=== PATIENT | male | born 1955 | race Hispanic/Latino ===

== ENCOUNTER → 2021-12-04 | Outpatient (CLI) | payer OTHER ==
[~2021-12-04] VITALS: Ht 167.6 cm; Wt 87.5 kg
[~2021-12-04] MED LIST: REGADENOSON 0.4 MG/5 ML PF SYG IVP SCH
== END | disposition home or self-care (01) ==
LOC: SHCH 07:54
PROVIDERS: ATTEND Internal Medicine Cardiovascular Disease
DX: I11.9 Hypertensive heart disease without heart failure (principal); Z95.1 Presence of aortocoronary bypass graft; Z79.01 Long term (current) use of anticoagulants
CPT/HCPCS: 78452; 93017; 96374; A9500 ×2; J2785

== ENCOUNTER 2022-01-17 06:22 | Day surgery (SDC) | payer OTHER ==
[2022-01-15 10:51] LABS: APPEARANCE,URINE Clear (CLEAR); BILIRUBIN,URINE Negative (NEGATIVE); COLOR,URINE Yellow (YELLOW); GLUCOSE, URINE (UA) Negative (NEGATIVE); KETONES,URINE Trace mg/dL (NEGATIVE); LEUKOCYTE ESTERASE ,URINE Negative (NEGATIVE); NITRATE,URINE Negative (NEGATIVE); OCCULT BLOOD,URINE Negative (NEGATIVE); PH,URINE 5.5 (5.0-8.0); PROTEIN,URINE Trace mg/dL (NEGATIVE)
[2022-01-15 11:09] LABS: BACTERIA,URINE Rare /HPF (None Seen); RBC,URINE None Seen /HPF (0-1); SQUAMOUS EPITHELIAL CELL,UR 0-2 /HPF (0-2); WBC,URINE None Seen /HPF (0-1)
[2022-01-15 11:11] LABS: INR 1.02 (0.85-1.15); PROTHROMBIN TIME 11.1 SEC (9.6-11.6)
[2022-01-15 11:13] LABS: PARTIAL THROMBOPLASTIN TIME 28.8 SEC (26.3-35.5)
[2022-01-15 11:14] LABS: CREATININE 1.1 mg/dL (0.5-1.5); POTASSIUM 4.4 mmol/L (3.5-5.1)
[2022-01-15 11:32] LABS: BASOPHILS % (AUTO) 0.2 % (0.0-5.0); EOSINOPHILS % (AUTO) 2.8 % (0.0-8.0); HEMATOCRIT 46.2 % (42-54); LYMPHOCYTES % (AUTO) 20.2 % (21.0-51.0); MEAN CORPUSCULAR HEMOGLOBIN 29.7 pg (27.0-33.0); MEAN CORPUSCULAR HGB CONC 32.5 g/dL (32.0-36.0); MEAN CORPUSCULAR VOLUME 91.5 fL (79-99); MONOCYTES % (AUTO) 8.2 % (3.0-13.0); NEUTROPHILS % (AUTO) 68.1 % (40.0-77.0); PLATELET COUNT (AUTO) 176 K/uL (130-400); RED BLOOD CELL COUNT(AUTO) 5.05 MIL/uL (4.50-6.20); RED CELL DISTRIBUTION WIDTH 13.3 % (11.0-15.5); WHITE BLOOD COUNT (AUTO) 8.2 K/uL (4.8-10.8)
[2022-01-16 14:04] VITALS: BP 150/67
[2022-01-17] VITALS (19 sets, daily range): BP systolic 104–176; BP diastolic 41–86
[~2022-01-17] VITALS: Ht 170.2 cm; Wt 89.4 kg
[~2022-01-17 06:22] MED LIST changes: +0.9% NACL 500ML IV.SOLN 500 ML IV SCH; +APIX5TAB PO; +ATOR40TA71 PO; +GABA600T10 PO; +ICOS1CAP PO; +LISI20TA24 PO; +METO-391 PO; +OMEP-420 PO; -REGADENOSON 0.4 MG/5 ML PF SYG IVP SCH; +SERT-439 PO; +TAMS-1 PO; +TRAM100T40 PO
[2022-01-17] MEDS ORDERED: 0.9%NACL 1000ML 1,000 ML IV ONE (08:12)
[2022-01-17] MEDS ORDERED: IOHEXOL 350 MG/ML 100ML INFUS..BTL IV ONE (08:19)
[2022-01-17] MEDS ORDERED: NITROGLYCERIN 50MG VIAL ONE (08:19)
[2022-01-17] MEDS ORDERED: IOHEXOL-350 50ML VIAL IV ONE (08:19)
[2022-01-17] MEDS ORDERED: MIDAZOLAM HCL 1 MG/ML 2ML VIAL ONE (08:20)
[2022-01-17] MEDS ORDERED: FENTANYL CITRATE PF 50 MCG/1 ML 2ML VIAL ONE (08:20)
[2022-01-17] MEDS ORDERED: LIDOCAINE HCL 400MG/20ML VIAL ONE (08:20)
[2022-01-17] MEDS ORDERED: LABETALOL 20MG VIAL IV ONE (09:08)
[2022-01-17] MEDS ORDERED: CLOPIDOGREL 300MG TAB ONE (09:34)
[2022-01-17] MEDS ORDERED: BIVALIRUDIN 250 MG/VIAL IV ONE (09:35)
[2022-01-17] MEDS ORDERED: ASPIRIN 325MG EC TAB PO ONE (09:35)
[2022-01-17] MEDS ORDERED: PRASUGREL HCL 10 MG TABLET ONE (09:36)
[2022-01-17] MEDS ORDERED: ONDANSETRON 4MG INJ IVP SCH (11:00)
[2022-01-17] MEDS ORDERED: ONDANSETRON 4MG INJ IVP PRN (11:00)
[2022-01-17] MEDS ORDERED: MORPHINE 5 MG/ML VIAL (5MG OR GREATER DOSE) IVP SCH (11:00)
[2022-01-17] MEDS ORDERED: 0.9%NACL 1000ML 1,000 ML IV SCH (11:00)
[2022-01-17] MEDS ORDERED: DEXTROSE 50%-WATER 50 ML DISP.SYRIN IV PRN (11:00)
[2022-01-17] MEDS: INSULIN HUMULIN R 100 UNIT/ML 3ML SQ SCH ×2 (11:30→16:30)
[2022-01-17] MEDS ORDERED: MORPHINE 5 MG/ML VIAL (5MG OR GREATER DOSE) ONE (12:37)
[2022-01-17] MEDS ORDERED: ATROPINE 1MG SYG IVP ONE (12:39)
== END 2022-01-17 18:00 | disposition home or self-care (01) ==
LOC: DAH 06:22
PROVIDERS: ATTEND Internal Medicine Cardiovascular Disease
DX: I25.10 Atherosclerotic heart disease of native coronary artery without angina pectoris (principal); I25.5 Ischemic cardiomyopathy; I25.82 Chronic total occlusion of coronary artery; I70.213 Atherosclerosis of native arteries of extremities with intermittent claudication, bilateral legs; I10 Essential (primary) hypertension; E66.9 Obesity, unspecified; I45.10 Unspecified right bundle-branch block; M19.90 Unspecified osteoarthritis, unspecified site; F32.9 Major depressive disorder, single episode, unspecified; E78.2 Mixed hyperlipidemia; Z79.01 Long term (current) use of anticoagulants; Z87.891 Personal history of nicotine dependence; Z95.5 Presence of coronary angioplasty implant and graft; Z68.30 Body mass index [BMI] 30.0-30.9, adult
CPT/HCPCS: 36415; 71045; 80048; 81001; 82948 ×2; 85025; 85610; 85730; 93005; 93459; A4215; A4216; A4221; A4222; A4223 ×3; A4606; A4663; C1769; C1874; C1887; C1894 ×2; C9604; J0461; J0583; J1644; J2250; J2270; J2405; J3010; J3490 ×3; J7030; Q9965 ×3; Q9967 ×2; 99156; 99157

== ENCOUNTER → 2022-11-29 | Outpatient (CLI) | payer OTHER ==
[~2022-11-29] MED LIST changes: -0.9% NACL 500ML IV.SOLN 500 ML IV SCH
[2022-11-29 10:40] LABS: CREATININE 1.2 mg/dL (0.5-1.5); POTASSIUM 4.2 mmol/L (3.5-5.1)
== END | disposition home or self-care (01) ==
LOC: LAB 09:33
PROVIDERS: ATTEND Internal Medicine Cardiovascular Disease
DX: I73.9 Peripheral vascular disease, unspecified (principal)
CPT/HCPCS: 36415; 80048

== ENCOUNTER → 2022-12-05 | Outpatient (CLI) | payer OTHER ==
[~2022-12-05] MED LIST changes: +IOHEXOL 350 MG/ML 100ML INFUS..BTL IV ONE; +IOHEXOL-350 50ML VIAL IV ONE
== END | disposition home or self-care (01) ==
LOC: RAH 09:56
PROVIDERS: ATTEND Internal Medicine Cardiovascular Disease
DX: I73.9 Peripheral vascular disease, unspecified (principal)
CPT/HCPCS: 75635; Q9967 ×2

== ENCOUNTER → 2023-01-06 | Outpatient (CLI) | payer OTHER ==
[~2023-01-06] MED LIST changes: -IOHEXOL 350 MG/ML 100ML INFUS..BTL IV ONE; -IOHEXOL-350 50ML VIAL IV ONE
[2023-01-06 16:27] LABS: BASOPHILS % (AUTO) 0.2 % (0.0-5.0); EOSINOPHILS % (AUTO) 1.7 % (0.0-8.0); HEMATOCRIT 44.8 % (42-54); LYMPHOCYTES % (AUTO) 20.9 % (21.0-51.0); MEAN CORPUSCULAR HEMOGLOBIN 29.9 pg (27.0-33.0); MEAN CORPUSCULAR HGB CONC 32.6 g/dL (32.0-36.0); MEAN CORPUSCULAR VOLUME 91.8 fL (79-99); MONOCYTES % (AUTO) 7.3 % (3.0-13.0); NEUTROPHILS % (AUTO) 69.6 % (40.0-77.0); PLATELET COUNT (AUTO) 183 K/uL (130-400); RED BLOOD CELL COUNT(AUTO) 4.88 MIL/uL (4.50-6.20); RED CELL DISTRIBUTION WIDTH 13.9 % (11.0-15.5); WHITE BLOOD COUNT (AUTO) 9.6 K/uL (4.8-10.8)
[2023-01-06 16:34] LABS: INR 0.95 (0.85-1.15); PROTHROMBIN TIME 10.4 SEC (9.6-11.6)
[2023-01-06 16:35] LABS: PARTIAL THROMBOPLASTIN TIME 28.5 SEC (26.3-35.5)
[2023-01-06 16:36] LABS: CREATININE 1.1 mg/dL (0.5-1.5); POTASSIUM 3.8 mmol/L (3.5-5.1)
== END | disposition home or self-care (01) ==
LOC: LAB 13:17
PROVIDERS: ATTEND Student in an Organized Health Care Education/Training Program
DX: I25.10 Atherosclerotic heart disease of native coronary artery without angina pectoris (principal); I73.9 Peripheral vascular disease, unspecified; Z95.1 Presence of aortocoronary bypass graft; Z79.82 Long term (current) use of aspirin; Z79.01 Long term (current) use of anticoagulants; Z79.899 Other long term (current) drug therapy
CPT/HCPCS: 36415; 80048; 85025; 85610; 85730

== ENCOUNTER 2023-02-24 07:17 | Observation (INO) | payer OTHER ==
[2023-02-20 08:54] LABS: BASOPHILS % (AUTO) 0.2 % (0.0-5.0); EOSINOPHILS % (AUTO) 1.9 % (0.0-8.0); HEMATOCRIT 43.6 % (42-54); LYMPHOCYTES % (AUTO) 16.9 % (21.0-51.0); MEAN CORPUSCULAR HEMOGLOBIN 29.4 pg (27.0-33.0); MEAN CORPUSCULAR HGB CONC 32.8 g/dL (32.0-36.0); MEAN CORPUSCULAR VOLUME 89.5 fL (79-99); MONOCYTES % (AUTO) 8.6 % (3.0-13.0); NEUTROPHILS % (AUTO) 72.2 % (40.0-77.0); PLATELET COUNT (AUTO) 182 K/uL (130-400); RED BLOOD CELL COUNT(AUTO) 4.87 MIL/uL (4.50-6.20); RED CELL DISTRIBUTION WIDTH 13.5 % (11.0-15.5); WHITE BLOOD COUNT (AUTO) 8.5 K/uL (4.8-10.8)
[2023-02-20 09:01] VITALS: BP 179/82
[2023-02-20 09:01] LABS: CREATININE 1.2 mg/dL (0.5-1.5); POTASSIUM 4.3 mmol/L (3.5-5.1)
[2023-02-20 09:16] LABS: INR 0.96 (0.85-1.15); PROTHROMBIN TIME 10.5 SEC (9.6-11.6)
[2023-02-20 09:17] LABS: PARTIAL THROMBOPLASTIN TIME 29.1 SEC (26.3-35.5)
[2023-02-24] VITALS (11 sets, daily range): BP systolic 146–190; BP diastolic 63–80
[~2023-02-24] VITALS: Ht 170.2 cm; Wt 89.5 kg
[~2023-02-24 07:17] MED LIST changes: +AEC81 PO; -APIX5TAB PO; +BUSP5TAB3 PO; -GABA600T10 PO; -ICOS1CAP PO; +ICOS1CAP2 PO; -OMEP-420 PO; +OMEP20TA20 PO; -SERT-439 PO; +TRAZ-187 PO
[2023-02-24] MEDS ORDERED: 0.9%NACL 1000ML 1,000 ML IV ONE (07:56)
[2023-02-24] MEDS ORDERED: LIDOCAINE HCL 400MG/20ML VIAL ONE (12:33)
[2023-02-24] MEDS ORDERED: FENTANYL CITRATE PF 50 MCG/1 ML 2ML VIAL ONE ×2 (12:33→13:51)
[2023-02-24] MEDS ORDERED: MIDAZOLAM HCL 1 MG/ML 2ML VIAL ONE ×2 (12:33→12:48)
[2023-02-24] MEDS ORDERED: NITROGLYCERIN 50MG VIAL ONE (12:34)
[2023-02-24] MEDS ORDERED: IODIXANOL 320 MG/ML 100 ML VIAL ONE (12:34)
[2023-02-24] MEDS ORDERED: HEPARIN 10,000 UNIT/10ML (1,000 UNIT/ML) VIAL ONE (12:34)
[2023-02-24] MEDS ORDERED: DiphenhydrAMINE HCL 50 MG/ML VIAL ONE (12:51)
[2023-02-24] MEDS ORDERED: ATROPINE 1MG SYG IVP ONE (14:23)
[2023-02-24] MEDS ORDERED: CLOPIDOGREL 300MG TAB ONE (14:35)
[2023-02-24] MEDS ORDERED: HEPARIN 1,000 UNIT VIAL ONE (14:38)
[2023-02-24] MEDS ORDERED: DEXTROSE 50%-WATER 50 ML DISP.SYRIN IV PRN (15:00)
[2023-02-24] MEDS ORDERED: GLUCAGON 1MG KIT 1 MG ML IM PRN (15:00)
[2023-02-24] MEDS ORDERED: 0.9%NACL 1000ML 1,000 ML IV SCH (15:00)
[2023-02-24] MEDS ORDERED: HYDRALAZINE 20MG/ML VIAL IV PRN (15:30)
[2023-02-24] MEDS ORDERED: FENTANYL CITRATE PF 50 MCG/1 ML 2ML VIAL IVP SCH (18:30)
[2023-02-24] MEDS ORDERED: PHARMACY COMMUNICATION MISC SCH (18:30)
[2023-02-24] MEDS ORDERED: MORPHINE 2 MG SYG IVP PRN (21:30)
[2023-02-24] MEDS ORDERED: MORPHINE 2 MG SYG ONE (21:38)
[2023-02-25 04:09] VITALS: BP 140/68
[2023-02-25 04:41] LABS: HEMATOCRIT 40.2 % (42-54); MEAN CORPUSCULAR HEMOGLOBIN 30.3 pg (27.0-33.0); MEAN CORPUSCULAR HGB CONC 33.6 g/dL (32.0-36.0); MEAN CORPUSCULAR VOLUME 90.1 fL (79-99); RED BLOOD CELL COUNT(AUTO) 4.46 MIL/uL (4.50-6.20); RED CELL DISTRIBUTION WIDTH 13.1 % (11.0-15.5); WHITE BLOOD COUNT (AUTO) 7.6 K/uL (4.8-10.8)
[2023-02-25] MEDS ORDERED: AEC81 PO (07:37)
[2023-02-25] MEDS ORDERED: CLOP75TA32 PO (07:38)
[2023-02-25 08:14] VITALS: BP 150/58
[2023-02-25] MEDS ORDERED: ASPIRIN 81MG CHEW TAB PO SCH (09:00)
[2023-02-25] MEDS ORDERED: CLOPIDOGREL 75MG TAB PO SCH (09:00)
== END 2023-02-25 11:53 | disposition home or self-care (01) ==
LOC: DAH 07:17 → DAHIP 07:18 → DAH 07:19 → 2DH 15:31
PROVIDERS: ADMIT Student in an Organized Health Care Education/Training Program; ATTEND Student in an Organized Health Care Education/Training Program
DX: I73.9 Peripheral vascular disease, unspecified (principal); I10 Essential (primary) hypertension; I25.810 Atherosclerosis of coronary artery bypass graft(s) without angina pectoris; G89.29 Other chronic pain; M54.9 Dorsalgia, unspecified; E78.5 Hyperlipidemia, unspecified; Z79.899 Other long term (current) drug therapy; Z98.890 Other specified postprocedural states
CPT/HCPCS: 80048; 85025; 85610; 85730 ×3; 36415 ×3; 93005; 75716; 37226; 96374; 96375 ×2; 85347 ×3; 85027; C1887 ×2; C1769 ×7; C1894 ×2; C1893; C1874; C1725 ×2; G0378 ×21; J1200; J3010 ×3; J3490 ×2; J7030; J0360; J1644 ×4; J2250 ×2; Q9967; A4215; A4223 ×3; A4222; A4221; A4663; A4216; A4606; 99156; 99157; C1876; J0461